=== PATIENT | female | born 1980 | race Two or more races ===

== ENCOUNTER 2021-02-12 10:29 | Emergency (ER) | payer OTHER ==
[~2021-02-12] VITALS: Ht 170.2 cm; Wt 112.5 kg
[~2021-02-12 10:29] MED LIST: IRON1TAB4 PO; LABETALOL HCL100 MG PO; PERCOCET 5/3251 TAB PO
[2021-02-12] MEDS ORDERED: WELLBUTRIN XL300 MG PO (10:51)
[2021-02-12] MEDS ORDERED: CLONAZEPAM0.5 MG PO (10:52)
[2021-02-12] MEDS ORDERED: ZOLOFT50 MG PO (10:53)
[2021-02-12] MEDS ORDERED: MUCINEX DM ER1 EAC1 PO (15:31)
[2021-02-12] MEDS ORDERED: MELATONIN10 MG PO (15:31)
[2021-02-12] MEDS ORDERED: IVERMECTIN3 MG PO (15:31)
[2021-02-12] MEDS ORDERED: COLCHICINE0.6 MG PO (15:31)
[2021-02-12] MEDS ORDERED: VITAMIN D3-ALO1 EACH PO (15:31)
[2021-02-12] MEDS ORDERED: VITAMIN C WIT1000 MG PO (15:31)
== END 2021-02-12 15:51 | disposition home or self-care (01) ==
LOC: ER 10:29
DX: U07.1 COVID-19 (principal); B34.9 Viral infection, unspecified